=== PATIENT | female | born 1990 | race Caucasian/White ===

== ENCOUNTER 2016-05-12 15:32 | Emergency (ER) ==
[2016-05-12] MEDS ORDERED: NS 1,000 ML IV ONE ×3 (16:10→18:58)
[2016-05-12] MEDS ORDERED: ZOFRAN IV ONE (16:10)
[2016-05-12] MEDS ORDERED: HUMULIN R IV ONE (16:16)
[2016-05-12 16:17] LABS: BE -29.9 mmoll (-3.0-3.0); BLOOD TYPE ARTERIAL; DRAW SITE R RADIAL; O2(CT) 21.9 mL/dL (15.0-23.0); PCO2(98.6) 8 mmHg (35-45); PO2(98.6) 139 mmHg (60-100); SAMPLE BLOOD; SAO2 96.4 % (95.0-100.0); THB 16.5 g/dL (11.5-17.4)
--- NOTE | 2016-05-12 16:18 | PROVIDER DOCUMENTATION ---
HPI-General Adult - General Chief Complaint: High Blood Sugar Stated Complaint: HIGH BLOOD SUGAR Time Seen by Provider: 05/12/16 16:10 Source: patient Allergies/Adverse Reactions: Patient Allergies Allergy/AdvReac Type Severity Reaction Status Date / Time No Known Allergies Allergy Verified 06/01/12 11:02 Home Medications: Albuterol Sulfate Inhaler [Ventolin Hfa] 2 puff INH PRN PRN 06/01/12 - History of Present Illness -Gen Adult Nature of Presenting Problems: Pt. is 26 yof that presents with c/o rapid breathing and general malaise. Pt. reports she has been out of her insulin since March 29. Pt. reports she didn't feel bad until today. Location of Pain/Injury: reports: generalized. denies: head, face, mouth, neck , chest, upper extremity, hand(s), abdomen, back, pelvis, genitalia, lower extremity, feet, upper body, lower body Pain Radiation: reports: no radiation Quality of Pain: reports: aching. denies: burning, cramping, dull, fullness, indigestion, pressure, sharp, stabbing, tearing, throbbing, tightness Severity: reports: severe. denies: mild, moderate Onset/Duration: reports: gradual, this morning Timing: reports: still present, getting worse. denies: improving, gone now, resolved prior to arrival, intermittent, constant, changing over time Context/Activities at Onset: reports: none. denies: recent emotional stress, recent physical stress, recent trauma history, possible bad food, cold exposure , out of country travel Modifying Factors: improves with: nothing Associated Symptoms: reports: malaise, nausea, weakness. denies: anxiety, arm pain, back/neck pain, chest pain, constipation, cough, diaphoresis, diarrhea, dizziness, EENT symptoms, fatigue, fever/chills, genitourinary problems, headaches, heartburn, joint pain, muscle aches, sinus congestion/drainage, rash , seizure, shortness of breath, sensory/motor loss, pain with inspiration, swelling/mass in abdomen, syncope, vomiting, trouble walking Similar Symptoms Previously?: Yes Recently seen or treated by another doctor?: No Review of Systems - Adult - REVIEW OF SYSTEMS - ADULT Constitutional: reports: see HPI. denies: chills, fever, fatique Eyes: reports: see HPI. denies: discharge, blurred vision, double vision, eye pain Ears, Nose, Mouth & Throat: reports: see HPI. denies: ear discharge, ear pain, sinus problem, nose pain, loose teeth, throat swelling Cardiovascular: reports: see HPI. denies: chest pain, irregular heart rate, orthopnea, palpitations, syncope Respiratory: reports: see HPI. denies: cough, dyspnea on exertion, pleurisy, wheezing Gastrointestinal: reports: see HPI, nausea. denies: abdominal pain, hematemesis , diarrhea, difficulty swallowing, vomiting Genitourinary: reports: see HPI. denies: dysuria, discharge, hematuria, hesitency, urgency Musculoskeletal: reports: see HPI. denies: bone pain, back pain, joint pain, muscle aches, neck pain Integumentary: reports: see HPI. denies: hives, hair loss, itching, rash, skin thickening Neurological: reports: see HPI. denies: ataxia, headache/migraines, numbness, seizure, tremors Psychiatric: reports: see HPI. denies: anxiety, depression, emotional problems , insomnia, panic attacks, suicidal thoughts Past History - Adult - PAST MEDICAL HISTORY-ADULT Review of Records: reports: Old Records Reviewed, Nursing Assessment Review, Medications Reviewed, Social history reviewed & non-contributory. Major Childhood Illnesses: reports: history unknown Cardiovascular: reports: denies history Respiratory: reports: denies history Gastrointestinal: reports: denies history Obstetrical/Gynecological: reports: denies history Genitourinary: reports: denies history Musculoskeletal: reports: denies history Neurological: reports: denies history Psychiatric: reports: denies history Endocrine/Immune: reports: denies history Other Conditions: reports: denies history - PRIOR SURGERIES/PROCEDURES Surgical/Procedure History: reports: none - PRIOR HOSPITALIZATIONS Prior Hospitalizations: reports: none - IMMUNIZATION STATUS Childhood Immunizations: See Nurse Assessment Flu Vaccine: See Nurse Assessment - FAMILY HISTORY Family History: reviewed, not pertinent Physical Exam-General - PHYSICAL EXAM-ADULT Initial Vital Signs Reviewed: Yes - CONSTITUTIONAL General Appearance: alert, severe distress, obese. negative: anxious, lethargic , slow to respond, obtunded, combative - EYES Eyes: PERRL/EOMI, pink conjunctivae. negative: conjuctival exudate, photophobia , subconjunctival hemorrhage - HEAD, EARS, NOSE, MOUTH & THROAT HENMT: normocephalic/atraumatic, moist mucous membranes. negative: angioedema, frontal tenderness, maxillary tenderness - NECK Neck: non-tender, full range of motion, supple, normal inspection. negative: lymphadenopathy, trachial deviation, thyromegaly - RESPIRATORY Respiratory: lungs clear, normal breath sounds, increased rate. negative: crackles, rales, rhonchi, stridor, wheezing - CARDIOVASCULAR Cardiovascular: regular rate, rhythm, no edema, no JVD, no murmur, tachycardia. negative: extra beats, friction rub, irregularly irregular - CHEST (BREASTS) Chest/Breast: deferred - GASTROINTESTINAL (ABDOMEN) Abdominal Exam: normal bowel sounds, non tender, soft. negative: distended, guarding, rigid, rebound, tenderness, hernia, mass - GENITOURINARY Female Genitalia/Pelvic Exam: deferred Rectal Exam: deferred Hemoccult Exam: deferred - LYMPHATIC Lymphatic: no adenopathy. negative: axilla node tender, cervical node tenderness - MUSCULOSKELETAL Back Exam: normal inspection, no CVA tenderness, no vertebral tenderness. negative: ecchymosis, muscle spasm, vertebral tenderness Extremity: normal range of motion, non-tender, normal gait, normal inspection. negative: deformity, erythema, inflammation, swelling, tenderness Peripheral Pulses: radial (R): 2+, radial (L): 2+ - SKIN Integumentary: normal color, normal turgor, warm/dry. negative: cyanosis, diaphoresis, ecchymosis, erythema, jaundice, mottled, pallor, petechiae, purpura , rash, swelling, tenderness - NEUROLOGIC Neurologic: grossly normal, no motor/sensory deficits. negative: aphasia, facial droop, focal weakness, motor weakness, sensory deficit - PSYCHIATRIC Psych/Mental Status: normal mood/affect, normal thought content, normal thought process, oriented x 3. negative: anxious, paranoid, tearful Progress - PLAN OF CARE/RESULTS Progress/Plan/Lab Results: Pt. has been accepted by Dr. Pandya at [facility] for transfer. Pt. will go to MICU bed 6. Discussed results and plan of care with patient. Patient agrees with plan and verbalizes understanding. Vital Signs Temp Pulse Resp BP Pulse Ox 05/12/16 17:38 96.5 F L 120 H 19 122/103 99 05/12/16 17:25 120 H 25 H 100 05/12/16 17:00 117 H 26 H 140/084 99 05/12/16 15:56 122 H 28 H 170/117 99 No Known Allergies Allergy (Verified 06/01/12 11:02) Albuterol Sulfate Inhaler [Ventolin Hfa] 2 puff INH PRN PRN 06/01/12 CefDINIR [Omnicef] 300 mg PO BID #14 capsule 03/31/16 Insulin Aspart [Novolog Flexpen] 10 units SQ TID #1 insuln.pen 03/31/16 Insulin Glargine,Hum.rec.anlog [Lantus Solostar] 56 unit SQ QAM #1 03/31/16 Laboratory 05/12/16 05/12/16 05/12/16 16:15 16:15 16:10 WBC 21.80 H RBC 5.83 H Hgb 17.3 H Hct 49.7 H MCV 85.2 MCH 29.7 MCHC 34.8 RDW Std Deviation 14.6 H Plt Count 417 H MPV 12.6 H Immature Gran % (Auto) 0.4 Neut % (Auto) 81.7 H Lymph % (Auto) 9.7 L [place] % (Auto) 7.8 Eos % (Auto) 0.1 Baso % (Auto) 0.3 Immature Gran # (Auto) 0.09 H Neut # (Auto) 17.81 H Lymph # (Auto) 2.12 [place] # (Auto) 1.69 H Eos # (Auto) 0.03 Baso # (Auto) 0.06 Segmented Neutrophils 88 H Lymphocytes 9 L Monocytes 3 Specimen Type ARTERIAL Sample Site R RADIAL pH 6.90 L* pCO2 8 L* pO2 139 H HCO3 1.5 L Base Excess -29.9 L Oxyhemoglobin 93.5 L ABG O2 Sat (Calculated) 21.9 ABG O2 Saturation 96.4 ABG Carboxyhemoglobin 0.00 L ABG Methemoglobin 3.0 H [place] Test YES A-a O2 Difference 1.0 Total Hemoglobin 16.5 Lactate 1.50 Blood Gas Modality ROOM AIR FiO2 % 21.0 Sodium 127 L Potassium 4.7 Chloride 90 L Carbon Dioxide 5 L Anion Gap 33 BUN 13 Creatinine 1.0 H Estimated GFR/1.73 m2 > 60 BUN/Creatinine Ratio 13 Glucose 575 H* POC Glucose Calculated Osmolality 282 Calcium 8.7 L Total Bilirubin 0.20 AST 5 L ALT 7 L Alkaline Phosphatase 122 H Total Protein 9.0 H Albumin 4.9 Globulin 4.0 Albumin/Globulin Ratio 1.0 Acetone Level SMALL A 05/12/16 15:58 WBC RBC Hgb Hct MCV MCH MCHC RDW Std Deviation Plt Count MPV Immature Gran % (Auto) Neut % (Auto) Lymph % (Auto) [place] % (Auto) Eos % (Auto) Baso % (Auto) Immature Gran # (Auto) Neut # (Auto) Lymph # (Auto) [place] # (Auto) Eos # (Auto) Baso # (Auto) Segmented Neutrophils Lymphocytes Monocytes Specimen Type Sample Site pH pCO2 pO2 HCO3 Base Excess Oxyhemoglobin ABG O2 Sat (Calculated) ABG O2 Saturation ABG Carboxyhemoglobin ABG Methemoglobin [place] Test A-a O2 Difference Total Hemoglobin Lactate Blood Gas Modality FiO2 % Sodium Potassium Chloride Carbon Dioxide Anion Gap BUN Creatinine Estimated GFR/1.73 m2 BUN/Creatinine Ratio Glucose POC Glucose 416 H D Calculated Osmolality Calcium Total Bilirubin AST ALT Alkaline Phosphatase Total Protein Albumin Globulin Albumin/Globulin Ratio Acetone Level Orders Category Date Time Status Cardiac Monitoring DIRECTED Care 05/12/16 16:00 Active Finger Stick Blood Sugar (ED) DIRECTED Care 05/12/16 16:00 Active Saline Loc NOW Care 05/12/16 16:00 Active Saline Loc NOW Care 05/12/16 16:24 Active ABG [RESP] Routine Lab 05/12/16 16:10 Completed ACETONE SERUM [CHEM] Stat Lab 05/12/16 16:15 Completed CBC WITH ELECTRONIC DIFF [HEME] Stat Lab 05/12/16 16:15 Completed COMPREHENSIVE METABOLIC PANEL [CHEM] Stat Lab 05/12/16 16:[address] W/POSS RFLX CULT [URINALYSIS] Stat Lab 05/12/16 16:28 Ordered URINE DRUG SCREEN PL Stat Lab 05/12/16 16:28 Ordered 0.9% Sodium Chloride Inj [Ns] 1,000 ml Med 05/12/16 16:10 Discontinued IV 999 mls/hr 0.9% Sodium Chloride Inj [Ns] 1,000 ml Med 05/12/16 16:24 Discontinued IV 999 mls/hr 0.9% Sodium Chloride Inj [Ns] 100 ml Med 05/12/16 16:30 Active Insulin Human Regular ([place] [Humulin R ([place])] 100 units IV Per Protocol Insulin Human Reg Dose ([address] [Humulin R Dose ([place] Med 05/12/16 16:21 Discontinued )] 10 dose .ROUTE .STK-MED ONE Insulin Human Regular [Humulin R] Med 05/12/16 16:16 Discontinued 10 unit IV NOW ONE Ondansetron [Zofran] Med 05/12/16 16:10 Discontinued 4 mg IV NOW ONE Pulse Oximetry Stat Oth 05/12/16 16:00 Active Laboratory Tests 05/12/16 05/12/16 05/12/16 15:58 16:10 16:15 WBC 21.80 H RBC 5.83 H Hgb 17.3 H Hct 49.7 H MCV 85.2 MCH 29.7 MCHC 34.8 RDW Std Deviation 14.6 H Plt Count 417 H MPV 12.6 H Immature Gran % (Auto) 0.4 Neut % (Auto) 81.7 H Lymph % (Auto) 9.7 L [place] % (Auto) 7.8 Eos % (Auto) 0.1 Baso % (Auto) 0.3 Immature Gran # (Auto) 0.09 H Neut # (Auto) 17.81 H Lymph # (Auto) 2.12 [place] # (Auto) 1.69 H Eos # (Auto) 0.03 Baso # (Auto) 0.06 Segmented Neutrophils 88 H Lymphocytes 9 L Monocytes 3 Specimen Type ARTERIAL Sample Site R RADIAL pH 6.90 L* pCO2 8 L* pO2 139 H HCO3 1.5 L Base Excess -29.9 L Oxyhemoglobin 93.5 L ABG O2 Sat (Calculated) 21.9 ABG O2 Saturation 96.4 ABG Carboxyhemoglobin 0.00 L ABG Methemoglobin 3.0 H [place] Test YES A-a O2 Difference 1.0 Total Hemoglobin 16.5 Lactate 1.50 Blood Gas Modality ROOM AIR FiO2 % 21.0 Sodium Potassium Chloride Carbon Dioxide Anion Gap BUN Creatinine Estimated GFR/1.73 m2 BUN/Creatinine Ratio Glucose POC Glucose 416 H D Calculated Osmolality Calcium Total Bilirubin AST ALT Alkaline Phosphatase Total Protein Albumin Globulin Albumin/Globulin Ratio Acetone Level 05/12/16 16:15 WBC RBC Hgb Hct MCV MCH MCHC RDW Std Deviation Plt Count MPV Immature Gran % (Auto) Neut % (Auto) Lymph % (Auto) [place] % (Auto) Eos % (Auto) Baso % (Auto) Immature Gran # (Auto) Neut # (Auto) Lymph # (Auto) [place] # (Auto) Eos # (Auto) Baso # (Auto) Segmented Neutrophils Lymphocytes Monocytes Specimen Type Sample Site pH pCO2 pO2 HCO3 Base Excess Oxyhemoglobin ABG O2 Sat (Calculated) ABG O2 Saturation ABG Carboxyhemoglobin ABG Methemoglobin [place] Test A-a O2 Difference Total Hemoglobin Lactate Blood Gas Modality FiO2 % Sodium 127 L Potassium 4.7 Chloride 90 L Carbon Dioxide 5 L Anion Gap 33 BUN 13 Creatinine 1.0 H Estimated GFR/1.73 m2 > 60 BUN/Creatinine Ratio 13 Glucose 575 H* POC Glucose Calculated Osmolality 282 Calcium 8.7 L Total Bilirubin 0.20 AST 5 L ALT 7 L Alkaline Phosphatase 122 H Total Protein 9.0 H Albumin 4.9 Globulin 4.0 Albumin/Globulin Ratio 1.0 Acetone Level SMALL A - CONSULTS/PCP/HOSPITALIST Notification #1 *Consult/PCP/Hospitalist*: Dr. Pandya Time Discussed: 17:00 Reason/Comments: Transfer Consult Disposition: other (Accepts transfer) Departure - Departure Time of Disposition Order: 17:48 DIAGNOSIS: DKA (diabetic ketoacidoses) Qualifiers: Diabetes mellitus type: type 1 Diabetes mellitus complication detail: without coma Qualified Code(s): E10.10 - Type 1 diabetes mellitus with ketoacidosis without coma Disposition: [facility] 02 Certified Medical Emergency: Emergent Condition: Stable Referrals: Carissa Melvin MD [Primary Care Provider] - Attestation - Physician/ Mid-level Attestation Patient care was provided by Mid-level provider ([facility]ONE/PA):: Yes Mid-level provider:: Raisa Sanford Mid-level documentation review:: The Mid-level provider documentation, treatment plan and medical decision making was reviewed by the physician who agrees with all treatment and medical decision making by the MLP.
[2016-05-12] MEDS ORDERED: HUMULIN R DOSE (PARKWAY) ONE (16:21)
[2016-05-12] MEDS ORDERED: HUMULIN R (PARKWAY) 100 UNITS in NS 100 ML IV PRN (16:30)
[2016-05-12 16:32] LABS: ALLEN TEST YES; MODALITY ROOM AIR
[2016-05-12 17:20] LABS: BASO% 0.3 % (0.0-0.8); EOS# 0.03 X1000 (0.0-0.7); EOS% 0.1 % (0.0-10.0); HEMATOCRIT 49.7 % (37.0-47.0); HEMOGLOBIN 17.3 g/dL (12.0-16.0); IMM GRAN# 0.09 X1000 (0.0-0.04); IMM GRAN% 0.4 % (0.0-0.5); LYMPH# 2.12 X1000 (1.2-3.4); LYMPH% 9.7 % (20.5-51.1); MANUAL DIFF NEEDED? YES; MCH 29.7 PG (27-31); MCHC 34.8 g/dL (33-37); MCV 85.2 FL (81-99); MONO# 1.69 X1000 (0.11-0.59); MONO% 7.8 % (1.7-9.3); MPV 12.6 FL (7.4-10.4); NEUT% 81.7 % (42.2-75.2); PLT 417 X1000 (130-400); RBC 5.83 XMIL (4.2-5.4)
[2016-05-12 17:30] LABS: LYMPHS 9 % (21-51); MONO 3 % (1-9)
[2016-05-12 17:39] VITALS: BP 122/103
[2016-05-12 17:44] LABS: AGAP 33; ALBUMIN 4.9 g/dL (3.5-5.0); ALKALINE PHOSPHATASE 122 U/L (32-104); BUN 13 mg/dL (8-22); CALCIUM 8.7 mg/dL (8.8-10.2); CHLORIDE 90 mmol/L (98-107); COSMO 282; GOT 5 U/L (10-30); GPT 7 U/L (10-36); POTASSIUM 4.7 mmol/L (3.5-5.1); SODIUM 127 mmol/L (136-145); TCO2 5 mmol/L (25-35)
[2016-05-12 17:45] LABS: ACETONE SERUM SMALL (NEGATIVE)
[2016-05-12] MEDS ORDERED: NS 1,000 ML ONE (18:46)
[2016-05-12 19:03] LABS: URINE SOURCE CLEAN CATCH
[2016-05-12 19:14] LABS: UR AMPHETAMINES QUAL NONE DETECTED (NONE DETECT); UR BARBITUATES QUAL PRESUMPTIVE POSITIVE (NONE DETECT); UR BENZODIAZEPIN QUAL NONE DETECTED (NONE DETECT); UR CANNABINOIDS QUAL NONE DETECTED (NONE DETECT); UR COCAINE QUAL NONE DETECTED (NONE DETECT); UR MDMA QUAL NONE DETECTED (NONE DETECT); UR METHADONE QUAL NONE DETECTED (NONE DETECT); UR METHAMPHETAMINE QUAL NONE DETECTED (NONE DETECT); UR OPIATES QUAL NONE DETECTED (NONE DETECT); UR OXYCODONE QUAL NONE DETECTED (NONE DETECT); UR PCP QUAL NONE DETECTED (NONE DETECT); UR TCA QUAL NONE DETECTED (NONE DETECT)
[2016-05-12 19:20] LABS: BILIRUBIN URINE NEGATIVE (NEGATIVE); BLOOD URINE TRACE (NEGATIVE); LEUKOCYTES URINE TRACE (NEGATIVE); NITRITE URINE NEGATIVE (NEGATIVE); PROTEIN URINE 1+(30 mg/dL) mg/dL (NEGATIVE); UROBILINOGEN URINE NORMAL
[2016-05-12 19:21] LABS: CLARITY SL. CLOUDY (CLEAR); COLOR YELLOW
[2016-05-12 19:23] LABS: URINE CULTURE PL NEEDED? YES; URINE EPITHELIAL CELLS <10 /HPF (<10); URINE RBC <10 /HPF (<10); URINE WBC <10 /HPF (<10)
== END 2016-05-12 19:00 | disposition short-term general hospital (02) ==
LOC: P.ED 15:32
DX: E10.10 Type 1 diabetes mellitus with ketoacidosis without coma (principal); R53.81 Other malaise; R11.0 Nausea; R53.1 Weakness; R00.0 Tachycardia, unspecified; E66.9 Obesity, unspecified
CPT/HCPCS: 80053; 81001; 82009; 82805; 82948; 85025; 87088; 96361; 96365; 96366; 96375; J1815; J2405; J7030

== ENCOUNTER 2016-09-15 01:17 | Inpatient (IN) ==
[2016-09-15 02:07] LABS: BE -28.5 mmoll (-3.0-3.0); BLOOD TYPE ARTERIAL; DRAW SITE L RADIAL; METHB 1.4 % (0.0-1.5); O2(CT) 22.7 mL/dL (15.0-23.0); PO2(98.6) 121 mmHg (60-100); SAMPLE BLOOD; SAO2 98.3 % (95.0-100.0); THB 16.8 g/dL (11.5-17.4)
[2016-09-15] MEDS ORDERED: NS 1,000 ML IV ONE ×3 (02:08→04:57)
[2016-09-15] MEDS ORDERED: ZOFRAN IV ONE (02:08)
[2016-09-15 02:12] LABS: MODALITY ROOM AIR; PCO2(98.6) 12 mmHg (35-45); pH(98.6) 6.93 (7.35-7.45)
[2016-09-15 02:13] LABS: ALLEN TEST YES
[2016-09-15 02:44] LABS: BASO% 0.4 % (0.0-0.8); EOS# 0.03 X1000 (0.0-0.7); EOS% 0.2 % (0.0-10.0); HEMATOCRIT 50.9 % (37.0-47.0); HEMOGLOBIN 16.8 g/dL (12.0-16.0); IMM GRAN# 0.12 X1000 (0.0-0.04); IMM GRAN% 0.6 % (0.0-0.5); LYMPH# 1.33 X1000 (1.2-3.4); MANUAL DIFF NEEDED? NO; MCH 29.2 PG (27-31); MCV 88.4 FL (81-99); MONO# 0.95 X1000 (0.11-0.59); MPV 11.9 FL (7.4-10.4); NEUT% 86.8 % (42.2-75.2); PLT 365 X1000 (130-400); RBC 5.76 XMIL (4.2-5.4)
[2016-09-15] MEDS ORDERED: SODIUM CHLORIDE 0.9% INJ ONE (02:52)
[2016-09-15] MEDS ORDERED: PHENERGAN IV ONE (02:52)
[2016-09-15 02:59] LABS: MAGNESIUM 2.2 mg/dL (1.5-2.7)
[2016-09-15 03:04] LABS: ACETONE SERUM LARGE (NEGATIVE)
[2016-09-15 03:05] LABS: AGAP 31; ALBUMIN 4.8 g/dL (3.5-5.0); ALKALINE PHOSPHATASE 96 U/L (32-104); AMYLASE 40 U/L (20-200); BUN 13 mg/dL (8-22); CALCIUM 9.1 mg/dL (8.8-10.2); CHLORIDE 91 mmol/L (98-107); COSMO 273; GOT 13 U/L (10-30); GPT 12 U/L (10-36); LIPASE 15 U/L (13-60); SODIUM 125 mmol/L (136-145); TCO2 3 mmol/L (25-35); TOTAL PROTEIN 8.8 g/dL (6.3-8.3)
[2016-09-15] MEDS ORDERED: HUMULIN R DOSE (PARKWAY) SUBQ ONE (03:32)
[2016-09-15] MEDS ORDERED: HUMULIN R (PARKWAY) ONE (03:35)
--- NOTE | 2016-09-15 04:24 | PROVIDER DOCUMENTATION ---
HPI-Abdominal Pain/GI Problem - General Chief Complaint: Nausea/Vomiting Stated Complaint: DIABETIC ISSUES Time Seen by Provider: 09/15/16 01:55 Source: family Allergies/Adverse Reactions: Patient Allergies Allergy/AdvReac Type Severity Reaction Status Date / Time No Known Allergies Allergy Verified 06/01/12 11:02 Home Medications: Home Medication List Medication Instructions Recorded Confirmed Last Taken Type Citalopram Hydrobromide [Celexa] 20 mg PO DAILY 09/15/16 09/15/16 Unknown History Hum Insulin NPH/Reg Insulin Hm 44 unit SQ QPM 09/15/16 09/15/16 Unknown History [Novolin 70-30 100 Unit/ml Vial] Insulin Novolog 70/30 [Novolog Mix 44 unit SQ QAM 09/15/16 09/15/16 Unknown History 70/30] - History of Present Illness-ABD Abdominal Pain Onset Location: reports: epigastric Quality of Pain: reports: dull Severity in ED: reports: mild Onset/Duration: reports: 1/2 hour ago Timing: reports: still present Activities at Onset: reports: light activity Exposure to sick contacts?: Yes Modifying Factors: improves with: nothing Associated Symptoms: reports: anxiety, genitourinary problems Last BM: this afternoon Dark Stools Present?: reports: none noticed Bruising or Bleeding Gums?: Yes Similar Symptoms Previously?: Yes Recently seen or treated by another doctor?: Yes Review of Systems - Adult - REVIEW OF SYSTEMS - ADULT Constitutional: reports: no symptoms reported Eyes: reports: no symptoms reported Ears, Nose, Mouth & Throat: reports: no symptoms reported Cardiovascular: reports: no symptoms reported Respiratory: reports: no symptoms reported Gastrointestinal: reports: no symptoms reported Genitourinary: reports: no symptoms reported Musculoskeletal: reports: no symptoms reported Integumentary: reports: no symptoms reported Neurological: reports: no symptoms reported Psychiatric: reports: no symptoms reported Endocrine: reports: no symptoms reported Hematologic/Lymphatic: reports: no symptoms reported Allergic/Immunologic: reports: no symptoms reported All Other Systems: Reviewed and Negative Past History - Adult - PAST MEDICAL HISTORY-ADULT Review of Records: reports: Old Records Reviewed, Nursing Assessment Review, Medications Reviewed, Social history reviewed & non-contributory. Major Childhood Illnesses: reports: history unknown Cardiovascular: reports: denies history Respiratory: reports: denies history Gastrointestinal: reports: denies history Obstetrical/Gynecological: reports: denies history Genitourinary: reports: denies history Musculoskeletal: reports: denies history Neurological: reports: denies history Psychiatric: reports: denies history Endocrine/Immune: reports: denies history Other Conditions: reports: denies history - PRIOR SURGERIES/PROCEDURES Surgical/Procedure History: reports: none - PRIOR HOSPITALIZATIONS Prior Hospitalizations: reports: none - IMMUNIZATION STATUS Childhood Immunizations: See Nurse Assessment Flu Vaccine: See Nurse Assessment - FAMILY HISTORY Family History: reviewed, not pertinent Physical Exam-General - PHYSICAL EXAM-ADULT Initial Vital Signs Reviewed: Yes - CONSTITUTIONAL General Appearance: appears well, alert, no apparent distress - EYES Eyes: PERRL/EOMI - HEAD, EARS, NOSE, MOUTH & THROAT HENMT: pharynx normal - NECK Neck: supple - RESPIRATORY Respiratory: chest non-tender, decreased breath sounds - CARDIOVASCULAR Cardiovascular: normal peripheral pulses - GASTROINTESTINAL (ABDOMEN) Abdominal Exam: abdominal bruit - MUSCULOSKELETAL Back Exam: CVA tenderness - NEUROLOGIC Neurologic: floor scrubber II-XII nml as tested - PSYCHIATRIC Psych/Mental Status: normal mood/affect Progress - PLAN OF CARE/RESULTS Progress/Plan/Lab Results: Vital Signs - 8 hr 09/15/16 01:21 09/15/16 03:48 Temperature 97.8 F 97.5 F L Pulse Rate 125 H 115 H Respiratory Rate 20 20 Blood Pressure 120/72 125/82 O2 Sat by Pulse Oximetry 100 100 Laboratory Results - last 24 hr 09/15/16 09/15/16 09/15/16 01:33 01:48 02:25 WBC RBC Hgb Hct MCV MCH MCHC RDW Std Deviation Plt Count MPV Immature Gran % (Auto) Neut % (Auto) Lymph % (Auto) [place] % (Auto) Eos % (Auto) Baso % (Auto) Immature Gran # (Auto) Neut # (Auto) Lymph # (Auto) [place] # (Auto) Eos # (Auto) Baso # (Auto) Specimen Type ARTERIAL Sample Site L RADIAL pH 6.93 L* pCO2 12 L* pO2 121 H HCO3 2.6 L Base Excess -28.5 L Oxyhemoglobin 95.7 ABG O2 Sat (Calculated) 22.7 ABG O2 Saturation 98.3 ABG Carboxyhemoglobin 1.20 ABG Methemoglobin 1.4 [place] Test YES A-a O2 Difference 14.0 Total Hemoglobin 16.8 Lactate 1.70 Blood Gas Modality ROOM AIR FiO2 % 21.0 Sodium 125 L Potassium 5.0 Chloride 91 L Carbon Dioxide 3 L Anion Gap 31 BUN 13 Creatinine 0.9 Estimated GFR/1.73 m2 > 60 BUN/Creatinine Ratio 14 Glucose 484 H* POC Glucose 368 H Calculated Osmolality 273 Calcium 9.1 Magnesium Total Bilirubin 0.20 AST 13 ALT 12 Alkaline Phosphatase 96 Total Protein 8.8 H Albumin 4.8 Globulin 4.0 Albumin/Globulin Ratio 1.0 Amylase 40 Lipase 15 Plasma Lactate Acetone Level 09/15/16 09/15/16 09/15/16 02:25 02:25 02:25 WBC 19.10 H RBC 5.76 H Hgb 16.8 H Hct 50.9 H MCV 88.4 MCH 29.2 MCHC 33.0 RDW Std Deviation 14.3 Plt Count 365 MPV 11.9 H Immature Gran % (Auto) 0.6 H Neut % (Auto) 86.8 H Lymph % (Auto) 7.0 L [place] % (Auto) 5.0 Eos % (Auto) 0.2 Baso % (Auto) 0.4 Immature Gran # (Auto) 0.12 H Neut # (Auto) 16.59 H Lymph # (Auto) 1.33 [place] # (Auto) 0.95 H Eos # (Auto) 0.03 Baso # (Auto) 0.08 Specimen Type Sample Site pH pCO2 pO2 HCO3 Base Excess Oxyhemoglobin ABG O2 Sat (Calculated) ABG O2 Saturation ABG Carboxyhemoglobin ABG Methemoglobin [place] Test A-a O2 Difference Total Hemoglobin Lactate Blood Gas Modality FiO2 % Sodium Potassium Chloride Carbon Dioxide Anion Gap BUN Creatinine Estimated GFR/1.73 m2 BUN/Creatinine Ratio Glucose POC Glucose Calculated Osmolality Calcium Magnesium 2.2 Total Bilirubin AST ALT Alkaline Phosphatase Total Protein Albumin Globulin Albumin/Globulin Ratio Amylase Lipase Plasma Lactate 2.6 H Acetone Level LARGE A Orders Category Date Time Status Saline Loc DIRECTED Care 09/15/16 01:58 Active NPO Diet 09/15/16 01:58 Active ABG [RESP] Routine Lab 09/15/16 01:48 Completed ACETONE SERUM [CHEM] Stat Lab 09/15/16 02:25 Completed AMYLASE [CHEM] Stat Lab 09/15/16 02:25 Completed CBC WITH ELECTRONIC DIFF [HEME] Stat Lab 09/15/16 02:25 Completed COMPREHENSIVE METABOLIC PANEL [CHEM] Stat Lab 09/15/16 02:25 Completed LACTATE, PLASMA [CHEM] Stat Lab 09/15/16 02:25 Completed LIPASE [CHEM] Stat Lab 09/15/16 02:25 Completed MAGNESIUM [CHEM] Stat Lab 09/15/16 02:[address] W/POSS RFLX CULT [URINALYSIS] Stat Lab 09/15/16 04:06 Ordered 0.9% Sodium Chloride Inj [Ns] 1,000 ml Med 09/15/16 02:08 Discontinued IV 999 mls/hr Insulin Human Reg Dose ([address] [Humulin R Dose ([place] Med 09/15/16 03:32 Discontinued )] 10 dose SUBQ NOW ONE Insulin Human Regular ([place] [Humulin R ([place])] Med 09/15/16 03:35 Discontinued 1 units .ROUTE .STK-MED ONE Ondansetron [Zofran] Med 09/15/16 02:08 Discontinued 4 mg IV NOW ONE Promethazine [Phenergan] Med 09/15/16 02:52 Discontinued 12.5 mg IV NOW ONE Sodium Chloride 0.9% Med 09/15/16 02:52 Discontinued 10 ml INJ NOW ONE Result Diagrams: 09/15/16 09:40 09/15/16 20:28 Departure - Departure Time of Disposition Decision: 02:00 DIAGNOSIS: DKA (diabetic ketoacidoses) Disposition: ADMITTED INPATIENT 09 Certified Medical Emergency: Emergent Condition: Stable - Critical Care Note This patient required my direct & personal management of CC.: No
[2016-09-15] MEDS ORDERED: SODIUM BICARBONATE 8.4% IV ONE (04:29)
[2016-09-15] MEDS ORDERED: NS 1,000 ML ONE ×2 (04:29→06:11)
[2016-09-15 04:33] LABS: CLARITY SLIGHTLY CLOUDY (CLEAR); COLOR YELLOW
[2016-09-15 04:34] LABS: BILIRUBIN URINE NEGATIVE (NEGATIVE); BLOOD URINE TRACE (NEGATIVE); LEUKOCYTES URINE NEGATIVE (NEGATIVE); NITRITE URINE NEGATIVE (NEGATIVE); PROTEIN URINE 1+(30 mg/dL) mg/dL (NEGATIVE); UROBILINOGEN URINE NORMAL
[2016-09-15 04:35] LABS: URINE CULTURE PL NEEDED? YES; URINE EPITHELIAL CELLS <10 /HPF (<10); URINE RBC <10 /HPF (<10); URINE SOURCE CLEAN CATCH; URINE WBC <10 /HPF (<10)
[2016-09-15] MEDS ORDERED: HUMULIN R SUBQ ONE (04:41)
[2016-09-15] MEDS ORDERED: HUMULIN R 100 UNIT in NS 100 ML IV SCH (04:56)
[2016-09-15] MEDS ORDERED: ZOFRAN IV PRN ×2 (04:57→09:01)
[2016-09-15] MEDS ORDERED: NS 100 ML ONE (05:01)
[2016-09-15] MEDS ORDERED: SODIUM BICARBONATE 8.4% 150 MEQ in D5W 1,000 ML IV SCH (07:42)
[2016-09-15] MEDS: NS 1,000 ML IV SCH ×4 (07:59→22:40)
[2016-09-15 08:44] LABS: ALLEN TEST YES; BE -23.9 mmoll (-3.0-3.0); BLOOD TYPE ARTERIAL; DRAW SITE R RADIAL; MODALITY CANNULA; O2(CT) 20.7 mL/dL (15.0-23.0); PCO2(98.6) 13 mmHg (35-45); PO2(98.6) 141 mmHg (60-100); SAMPLE BLOOD; THB 14.9 g/dL (11.5-17.4); pH(98.6) 7.08 (7.35-7.45)
[2016-09-15] MEDS ORDERED: HUMULIN R 100 UNIT in NS 99 ML IV SCH ×2 (09:01→10:30)
[2016-09-15] MEDS ORDERED: D5 NS + KCL 20 MEQ 1,000 ML IV SCH (09:01)
[2016-09-15] MEDS ORDERED: SODIUM BICARBONATE 8.4% 50 MEQ in D5W 250 ML IV PRN (09:01)
[2016-09-15] MEDS ORDERED: SODIUM PHOSPHATE 30 MMOL in D5W 250 ML IV PRN (09:01)
[2016-09-15] MEDS ORDERED: D50W SYRINGE IV PRN (09:01)
[2016-09-15] MEDS ORDERED: MAGNESIUM SULFATE 2 GM/S.W.I. 2 GM/50 ML IVPB IV PRN (09:01)
[2016-09-15] MEDS ORDERED: SODIUM BICARBONATE 8.4% 100 MEQ in D5W 500 ML IV PRN (09:01)
[2016-09-15] MEDS ORDERED: HUMULIN R IV ONE (09:01)
[2016-09-15] MEDS ORDERED: NS 1,000 ML IV SCH (09:01)
[2016-09-15] MEDS ORDERED: TYLENOL PR PRN (09:01)
[2016-09-15 10:33] LABS: HEMOGLOBIN A1C 12.8 % (4.8-6.0)
[2016-09-15 10:38] LABS: AGAP 23; BUN 12 mg/dL (8-22); CALCIUM 8.7 mg/dL (8.8-10.2); CHLORIDE 110 mmol/L (98-107); COSMO 285; MAGNESIUM 1.8 mg/dL (1.5-2.7); SODIUM 141 mmol/L (136-145); TCO2 8 mmol/L (25-35)
[2016-09-15 11:27] LABS: HDL 42 mg/dL (45-65); TRIGLYCERIDES 424 mg/dL (35-135)
--- NOTE | 2016-09-15 11:47 | Diag Imaging Result Document ---
PROCEDURE NAME: CHEST-PORTABLE - 09/15/2016 AP PORTABLE CHEST, UPRIGHT AT 1112 HOURS: FINDINGS: The inspiration is suboptimal. Compared to 03/26/2016, there has been no significant change in the appearance of the chest. IMPRESSION: No acute disease.
[2016-09-15] MEDS ORDERED: 1/2 NS + KCL 20 MEQ 1,000 ML IV SCH (12:00)
[2016-09-15 12:15] LABS: ALLEN TEST YES; BE -17.1 mmoll (-3.0-3.0); BLOOD TYPE ARTERIAL; DRAW SITE R RADIAL; METHB 1.6 % (0.0-1.5); MODALITY CANNULA; O2(CT) 19.1 mL/dL (15.0-23.0); PCO2(98.6) 22 mmHg (35-45); PO2(98.6) 130 mmHg (60-100); SAMPLE BLOOD; SAO2 99.6 % (95.0-100.0); pH(98.6) 7.21 (7.35-7.45)
[2016-09-15] MEDS: POTASSIUM CHLORIDE 10 MEQ in D5 NS 1,000 ML IV SCH ×2 (14:20→20:47)
[2016-09-15] MEDS: TYLENOL PO PRN ×2 (14:27→18:45)
[2016-09-15 14:33] LABS: AGAP 20; BUN 11 mg/dL (8-22); CALCIUM 8.6 mg/dL (8.8-10.2); CHLORIDE 108 mmol/L (98-107); COSMO 277; MAGNESIUM 1.7 mg/dL (1.5-2.7); SODIUM 138 mmol/L (136-145); TCO2 10 mmol/L (25-35)
[2016-09-15 16:34] LABS: ALLEN TEST YES; BE -17.1 mmoll (-3.0-3.0); BLOOD TYPE ARTERIAL; DRAW SITE R RADIAL; METHB 1.7 % (0.0-1.5); MODALITY CANNULA; O2(CT) 18.4 mL/dL (15.0-23.0); PCO2(98.6) 21 mmHg (35-45); PO2(98.6) 151 mmHg (60-100); SAMPLE BLOOD; SAO2 99.7 % (95.0-100.0); THB 13.4 g/dL (11.5-17.4); pH(98.6) 7.22 (7.35-7.45)
[2016-09-15 17:38] LABS: AGAP 20; BUN 10 mg/dL (8-22); CALCIUM 8.1 mg/dL (8.8-10.2); CHLORIDE 105 mmol/L (98-107); COSMO 279; MAGNESIUM 1.5 mg/dL (1.5-2.7); POTASSIUM 3.9 mmol/L (3.5-5.1); SODIUM 134 mmol/L (136-145); TCO2 9 mmol/L (25-35)
--- NOTE | 2016-09-15 19:59 | HISTORY AND PHYSICAL ---
CHIEF COMPLAINT: The patient feels like she in DKA. HISTORY OF PRESENT ILLNESS: Ms. Hart is a 26-year-old, female who I believe is a type 1 diabetic with history of anxiety. Yesterday the patient had what she thought was a stomach virus. She was not able to hold any food down, when she would go to drink any liquids she would vomit them up, and she felt like the ketones were rising in her body, so she reported to the ED at [facility] where she was found to have a blood sugar of 484, anion gap of 31, large ketones in her urine. ABG: pH was 6.93, pCO2 was 12. She was started on IV hydration as well as 2 amps of bicarbonate, 10 units of subcutaneous regular insulin and 10 units of Humalog while in the ED at [facility]. The patient was transferred to [facility] ICU. Upon examination the patient appears to have Kussmaul respirations, very dry mucous membranes. She has been out of her strips for several days so she has not been checking her blood sugars. The patient will be placed on a DKA protocol. The patient denied any chest pain. No cough, fever or chills. Denied any dysuria, hematuria or diarrhea, just nausea and vomiting. PAST MEDICAL HISTORY: 1. Diabetes. 2. Anxiety. 3. Asthma. 4. Migraines. PAST SURGICAL HISTORY: None. FAMILY HISTORY: The patient is adopted. SOCIAL HISTORY: Denied any tobacco or alcohol. ALLERGIES: No known drug allergies. HOME MEDICATIONS: 1. Celexa 20 mg p.o. daily. 2. Novolin 70/30, 44 units subcutaneous q.p.m. 3. NovoLog mix 70/30, 44 units subcutaneous q.a.m. REVIEW OF SYSTEMS: A 10 point review of systems completely negative except for those mentioned in HPI. PHYSICAL EXAMINATION: VITAL SIGNS: Temperature is 98.3 degrees, heart rate 124, respirations 24, blood pressure 126/79, O2 is 100% on 2 L nasal cannula. GENERAL: Ms. Hart is a 26-year-old, female. She is lying in bed. She is having Kussmaul respirations, very ill-appearing. HEENT: Atraumatic, normocephalic. PERRLA. NECK: Supple. Trachea midline. CARDIOVASCULAR: No murmurs, gallops, rubs noted. RESPIRATORY: Lung sounds clear to excursion, nonlabored breathing. GASTROINTESTINAL: Soft, nontender, nondistended. Positive bowel sounds x4 quadrants. EXTREMITIES: No clubbing, no cyanosis. Bilateral pedal pulses are palpable. NEUROLOGICAL: No focal deficits noted. LABORATORY DATA: White count is 19, hemoglobin 16, hematocrit is 50, platelet count is 365,000. ABG: pH 6.93, pCO2 12, pCO2 121, bicarbonate 2.6, base excess -28.5. O2 saturation was 98.3% on room air. Chemistry: Sodium 125, potassium 5.0, anion gap 31, BUN 13, creatinine 0.9, blood glucose 484. DIAGNOSTIC DATA: 1. Chest x-ray has been ordered. 2. Blood cultures have been ordered. 3. Urine is pending. She does have 2+ bacteria in her urine, negative for nitrites, large ketones in the urine, acetone level is large. ASSESSMENT AND PLAN: 1. Diabetic ketoacidosis. We will continue with DKA protocol. IV hydration, supplementation of potassium as well as magnesium. The patient will be watched in the ICU closely. 2. Urinary tract infection. We will start her on antibiotic. 3. Anxiety and depression. We will continue Celexa when patient is taking NPO. She will remain NPO for now. 4. Further recommendations to follow physician evaluation. CRITICAL CARE TIME: 35 minutes. Dictated by NATHEN Connell for Jason Horvath MD cc: Jason Horvath MD
[2016-09-15 20:07] LABS: ALLEN TEST YES; BE -12.1 mmoll (-3.0-3.0); BLOOD TYPE ARTERIAL; DRAW SITE R BRACHIAL; METHB 0.9 % (0.0-1.5); O2(CT) 17.1 mL/dL (15.0-23.0); PCO2(98.6) 28 mmHg (35-45); PO2(98.6) 98 mmHg (60-100); SAMPLE BLOOD; SAO2 100.6 % (95.0-100.0); THB 12.5 g/dL (11.5-17.4); pH(98.6) 7.28 (7.35-7.45)
[2016-09-15 21:10] LABS: AGAP 15; BUN 8 mg/dL (8-22); CALCIUM 8.4 mg/dL (8.8-10.2); CHLORIDE 110 mmol/L (98-107); COSMO 282; MAGNESIUM 1.6 mg/dL (1.5-2.7); POTASSIUM 3.2 mmol/L (3.5-5.1); SODIUM 138 mmol/L (136-145); TCO2 13 mmol/L (25-35)
[2016-09-15 22:04] LABS: MODALITY ROOM AIR
[2016-09-16 00:15] LABS: ALLEN TEST YES; BE -11.5 mmoll (-3.0-3.0); BLOOD TYPE ARTERIAL; DRAW SITE R RADIAL; METHB 1.5 % (0.0-1.5); O2(CT) 16.8 mL/dL (15.0-23.0); PCO2(98.6) 31 mmHg (35-45); PO2(98.6) 99 mmHg (60-100); SAMPLE BLOOD; SAO2 99.2 % (95.0-100.0); THB 12.4 g/dL (11.5-17.4); pH(98.6) 7.27 (7.35-7.45)
[2016-09-16 00:29] LABS: MODALITY ROOM AIR
[2016-09-16] MEDS: POTASSIUM CHLORIDE 10 MEQ in D5 NS 1,000 ML IV SCH ×2 (03:20→08:27)
[2016-09-16 04:33] LABS: ALLEN TEST YES; BE -9.3 mmoll (-3.0-3.0); BLOOD TYPE ARTERIAL; DRAW SITE R RADIAL; METHB 1.2 % (0.0-1.5); O2(CT) 17.4 mL/dL (15.0-23.0); PCO2(98.6) 28 mmHg (35-45); PO2(98.6) 148 mmHg (60-100); SAMPLE BLOOD; SAO2 99.3 % (95.0-100.0); THB 12.6 g/dL (11.5-17.4); pH(98.6) 7.34 (7.35-7.45)
[2016-09-16 04:34] LABS: MODALITY ROOM AIR
[2016-09-16] MEDS: NS 1,000 ML IV SCH ×4 (07:53→19:36)
[2016-09-16 09:00] LABS: AGAP 11; BUN 6 mg/dL (8-22); CALCIUM 8.2 mg/dL (8.8-10.2); CHLORIDE 113 mmol/L (98-107); COSMO 284; MAGNESIUM 1.5 mg/dL (1.5-2.7); POTASSIUM 3.2 mmol/L (3.5-5.1); SODIUM 141 mmol/L (136-145); TCO2 17 mmol/L (25-35)
[2016-09-16] MEDS ORDERED: SODIUM PHOSPHATE 30 MMOL in D5W 250 ML IV SCH (09:00)
[2016-09-16] MEDS ORDERED: NS IV ONE (09:06)
[2016-09-16] MEDS ORDERED: SODIUM PHOSPHATE IV ONE (09:06)
[2016-09-16 09:15] LABS: MANUAL DIFF NEEDED? NO
[2016-09-16 09:19] LABS: BASO% 0.3 % (0.0-0.8); EOS# 0.12 X1000 (0.0-0.7); EOS% 1.6 % (0.0-10.0); HEMATOCRIT 35.2 % (37.0-47.0); HEMOGLOBIN 12.4 g/dL (12.0-16.0); IMM GRAN# 0.02 X1000 (0.0-0.04); IMM GRAN% 0.3 % (0.0-0.5); LYMPH% 17.3 % (20.5-51.1); MCHC 35.2 g/dL (33-37); MCV 85.2 FL (81-99); MONO# 0.67 X1000 (0.11-0.59); MONO% 8.9 % (1.7-9.3); MPV 11.7 FL (7.4-10.4); NEUT% 71.6 % (42.2-75.2); PLT 213 X1000 (130-400); RBC 4.13 XMIL (4.2-5.4)
[2016-09-16] MEDS ORDERED: LANTUS SUBQ SCH (10:15)
[2016-09-16] MEDS ORDERED: BLISTEX MEDICATED BERRY LIP BALM TOP ONE (10:46)
--- NOTE | 2016-09-16 11:21 | PROGRESS NOTE ---
DATE: 09/16/2016 SUBJECTIVE: The patient reports doing fine. Less thirsty and less lethargic. Less nauseated. No fever or chills reported. OBJECTIVE: Vital Signs: Temperature 98.3 degrees, heart rate 89, respiratory rate 12, blood pressure 112/69. O2 saturation 98% on room air. General Examination: This is a 26-year-old female, lying in bed, in no acute distress. HEENT: Head is normocephalic, atraumatic. Anicteric sclerae and pale conjunctivae. Mucous membranes moist. Neck: Supple. No jugular venous distention noted. No carotid bruits. No lymphadenopathy. No thyromegaly. Cardiovascular: S1, S2 heard. No murmurs, gallops, or rubs. Regular rate and rhythm. Respiratory Examination: Clear bilaterally to auscultation. No work of breathing or using accessory muscles. Abdomen: Soft, nontender to palpation. Bowel sounds present. No organomegaly. Extremities: No clubbing, cyanosis, or edema. Peripheral pulses present in both legs. Neurological Examination: Patient is alert and oriented x3. Able to move 4 extremities. Cranial nerves 2-12 grossly normal. LABORATORY DATA: White cell count 7.52, hemoglobin 12.4, hematocrit 35.2, platelets 213,000. ABG shows pH 7.34, pCO2 28, pO2 48. Sodium 141, potassium 3.2, chloride 113. Bicarbonate 17. Anion gap 11. BUN 6, creatinine 0.5. Also hemoglobin A1c 12.5. ASSESSMENT AND PLAN: 1. Diabetic ketoacidosis. This condition has resolved. Gap has closed and glucose is better controlled. We are going to stop insulin and start Lantus 30 units subcutaneous daily. Sliding scale insulin Humalog high doses. It is important to remark that her hemoglobin A1c was 12.4, which means really poor diabetes control. Patient has been advised about the long- term complications of diabetes. At this point, we prefer to change the Humulin 70/30 for Lantus, which I think will control better diabetes mellitus. We are going to check Accu-Cheks today and we are going to start diabetic diet. If this patient is doing fine , the labs are fine tomorrow, we can discharge her. 2. Urinary tract infection. Patient apparently was being treated for a urinary tract infection but considering that this patient's urine culture is negative antibiotics has been stopped. 3. Anxiety and depression. Will restart Celexa. cc: Jason Horvath MD MTDD
[2016-09-16] MEDS: CELEXA PO SCH (11:54)
[2016-09-16] MEDS: HUMALOG SUBQ SCH ×3 (12:00→20:35)
[2016-09-16] MEDS ORDERED: INSULIN PEN NEEDLES ONE (12:07)
[2016-09-16] MEDS: NEUTRA-PHOS PO SCH ×3 (13:18→20:22)
[2016-09-16] MEDS ORDERED: BENADRYL IV PRN (17:05)
[2016-09-17] MEDS: NS 1,000 ML IV SCH ×3 (00:28→20:03)
[2016-09-17 06:18] LABS: MANUAL DIFF NEEDED? NO
[2016-09-17 06:22] LABS: BASO% 0.2 % (0.0-0.8); EOS% 2.4 % (0.0-10.0); HEMATOCRIT 35.2 % (37.0-47.0); HEMOGLOBIN 12.4 g/dL (12.0-16.0); IMM GRAN# 0.02 X1000 (0.0-0.04); IMM GRAN% 0.5 % (0.0-0.5); LYMPH# 1.43 X1000 (1.2-3.4); LYMPH% 34.1 % (20.5-51.1); MCH 29.8 PG (27-31); MCHC 35.2 g/dL (33-37); MCV 84.6 FL (81-99); MONO# 0.55 X1000 (0.11-0.59); MONO% 13.1 % (1.7-9.3); NEUT% 49.7 % (42.2-75.2); PLT 199 X1000 (130-400); RBC 4.16 XMIL (4.2-5.4)
[2016-09-17 06:39] LABS: AGAP 15; BUN 4 mg/dL (8-22); CALCIUM 8.3 mg/dL (8.8-10.2); CHLORIDE 104 mmol/L (98-107); COSMO 286; MAGNESIUM 1.5 mg/dL (1.5-2.7); POTASSIUM 2.9 mmol/L (3.5-5.1); SODIUM 141 mmol/L (136-145); TCO2 22 mmol/L (25-35)
[2016-09-17] MEDS: HUMALOG SUBQ SCH ×3 (06:45→17:29)
[2016-09-17] MEDS ORDERED: INSULIN PEN NEEDLES ONE (07:53)
[2016-09-17] MEDS: POTASSIUM CHLORIDE 60 MEQ in NS 500 ML IV SCH ×2 (08:20→14:30)
[2016-09-17] MEDS: CELEXA PO SCH (10:02)
[2016-09-17] MEDS: LANTUS SUBQ SCH (10:49)
--- NOTE | 2016-09-17 15:39 | PROGRESS NOTE ---
DATE: 09/17/2016 SUBJECTIVE: Patient reports feeling fine. Less nauseated. OBJECTIVE: Vital Signs: Temperature 97.8 degrees, heart rate 60, respiratory rate 20, blood pressure 115/68, O2 saturation 99% on room air. General: This is a 26-year-old, female lying in bed, in no acute distress. HEENT: Head is normocephalic, atraumatic. Anicteric sclerae and pale conjunctivae. Mucous membranes moist. Neck: Supple. No JVD noted. No carotid bruits. No lymphadenopathy. No thyromegaly. Cardiovascular: S1-S2 heard. No murmurs, gallops, or rubs. Regular rate and rhythm. Respiratory: Clear bilaterally to auscultation. No work of breathing or using accessory muscles. Abdomen: Soft, nontender to palpation. Bowel sounds present. No organomegaly. Extremities: No clubbing, cyanosis, or edema. Peripheral pulses present in both legs. Neurological: Patient alert and oriented x3. Moves 4 extremities. Cranial nerves grossly normal. LABORATORY DATA: CBC is unremarkable. BMP shows potassium 2.9 and glucose 247. ASSESSMENT/PLAN: 1. Diabetic ketoacidosis. That condition has resolved. I have started Lantus 30 units yesterday on this patient, but unfortunately the glucose is still high, so we are going to increase it to 40 and we will continue with sliding scale insulin Humalog . Hemoglobin A1c is 12.4, which really is poor control of diabetes. We will continue with the same management. 2. Urinary tract infection. That condition has been ruled out. She is not on any antibiotics. 3. Anxiety and depression. Patient is on Celexa. We will continue with the same management. cc: Jason Horvath MD
[2016-09-18] MEDS: HUMALOG SUBQ SCH ×3 (00:31→10:52)
[2016-09-18] MEDS: NS 1,000 ML IV SCH (05:22)
[2016-09-18 06:28] VITALS: BP 105/71
[2016-09-18 06:39] LABS: MANUAL DIFF NEEDED? NO
[2016-09-18 06:41] LABS: BASO% 0.5 % (0.0-0.8); EOS# 0.09 X1000 (0.0-0.7); HEMATOCRIT 35.5 % (37.0-47.0); HEMOGLOBIN 12.3 g/dL (12.0-16.0); LYMPH# 1.78 X1000 (1.2-3.4); LYMPH% 40.2 % (20.5-51.1); MCH 29.8 PG (27-31); MCHC 34.6 g/dL (33-37); MONO# 0.51 X1000 (0.11-0.59); MONO% 11.5 % (1.7-9.3); MPV 10.8 FL (7.4-10.4); NEUT% 45.8 % (42.2-75.2); PLT 189 X1000 (130-400); RBC 4.13 XMIL (4.2-5.4)
[2016-09-18 07:24] LABS: AGAP 9; BUN 9 mg/dL (8-22); CALCIUM 8.2 mg/dL (8.8-10.2); CHLORIDE 107 mmol/L (98-107); COSMO 287; MAGNESIUM 1.6 mg/dL (1.5-2.7); POTASSIUM 3.4 mmol/L (3.5-5.1); SODIUM 142 mmol/L (136-145); TCO2 26 mmol/L (25-35)
[2016-09-18] MEDS: LANTUS SUBQ SCH (08:51)
[2016-09-18] MEDS: CELEXA PO SCH (08:51)
--- NOTE | 2016-09-19 06:04 | DISCHARGE SUMMARY ---
ADMISSION DATE: 09/15/2016 DISCHARGE DATE: 09/18/2016 CONSULTATIONS: None. PERTINENT PROCEDURES: Chest x-ray showed no acute disease. Blood culture is negative. Urine culture negative. DISCHARGE DIAGNOSES: 1. Diabetic ketoacidosis resolved. 2. Diabetes mellitus uncontrolled with hemoglobin A1c of 12.4, her medications have been adjusted to Lantus 40 units subcutaneous daily. 3. Urinary tract infection ruled out. 4. Anxiety and depression. Continue Celexa. HOSPITAL COURSE: Ms. Hart is a 26-year-old female with a past medical history of diabetes with several admissions for DKA, anxiety on Celexa, asthma, migraines. The patient had reported the day before her admission she thought she had a stomach virus. She was not able to hold down any food or liquids. She also admitted that she had ran out of testing strips for her blood glucose, and on Sunday morning she felt like she was in DKA so she reported to [facility] ED where she was found have a blood sugar 44, an anion gap of 31, large ketones in her urine. She was acidotic on ABGs. She was started on IV hydration as well as 2 amps of bicarb and 10 units of subcutaneous Regular insulin and 10 units p.m. of Humalog. On the ED at [facility] she was transferred to [facility] ICU due to lack of beds at [facility]. The patient did appear to have Kussmaul respirations at the time of her admission. Her mucous membranes were very dry. The patient was admitted to the ICU at [facility] and started on the DKA protocol. The patient did have 2+ bacteria in her urine; however, cultures were sent off. They were negative so was ruled out. Blood cultures were negative. Chest x-ray was negative. The patient was able to come off the DKA protocol. She was transferred to a regular room. With medication adjustments with her insulin, she has been switched to Lantus 40 units subcutaneous daily. Her hemoglobin A1c was 12.4. Dr. Latif feels that the patient is appropriate for discharge home today with Lantus. DISCHARGE DIET: Diabetic. DISCHARGE MEDICATIONS: As per Dr. Latif: 1. Celexa 20 mg p.o. daily. 2. Lantus 40 units subcutaneous q.a.m. FOLLOW-UP: The patient is being discharged home where she will need to follow up with her primary care physician, Dr. Carissa Melvin, in 7-10 days. The patient will need to follow a diabetic diet. She can return to the ED for any worsening of symptoms. Dictated by NATHEN Connell for Jason Horvath MD cc: MD Carissa Nowak
== END 2016-09-18 12:33 | disposition home or self-care (01) ==
LOC: P.ED 01:17 → ICU 05:45 → SUATTDRO 05:45 → 3N 09-16 21:46
PROVIDERS: ATTEND Internal Medicine